=== PATIENT | male | born 1960 | race Caucasian/White ===

== ENCOUNTER → 2018-04-02 08:02 | Outpatient (CLI) | payer OTHER, SELFPAY ==
[2018-04-02 11:34] LABS: Anion Gap 10 (5-15); BUN 21 mg/dL (7-18); BUN/Creat Ratio 21.3 RATIO (10-20); Chloride 106 mmol/L (98-107); Cholesterol 224 mg/dL (200); Creatinine, Serum 0.99 mg/dL (0.70-1.30); EST Glomerular Filtration Rate 84 mL/min (>60); Est Glom Filt Rate - Afr Amer 101 mL/min (>60); Glucose 95 mg/dL (74-106); High Density Lipoprotein 58 mg/dL; PSA,Total - Annual Screen 0.55 ng/mL (0.00-4.00); Potassium 4.1 mmol/L (3.5-5.1); Sodium Level 141 mmol/L (136-145); Thyroid Stim Hormone (TSH) 2.53 uIU/mL (0.358-3.74); Triglycerides 66 mg/dL; Very Low Density Lipoprotein 13 mg/dL (5-40)
[2018-04-02 12:05] LABS: Vitamin D,25 Hydroxy 32.4 ng/mL (29.95-100.01)
== END ==
PROVIDERS: Family Provider Family Medicine; PCP Family Medicine; Visit Provider Family Medicine
DX: Z00.00 Encounter for general adult medical examination without abnormal findings (principal); Z12.5 Encounter for screening for malignant neoplasm of prostate
CPT/HCPCS: 36415; 80048; 80061; 82306; 84153; 84443; G0103

== ENCOUNTER → 2018-07-05 16:15 | Outpatient (CLI) | payer OTHER, SELFPAY ==
[2018-07-05 18:40] LABS: Cholesterol 161 mg/dL (200); High Density Lipoprotein 65 mg/dL; Triglycerides 64 mg/dL; Very Low Density Lipoprotein 13 mg/dL (5-40)
--- OUTSIDE RECORDS SUMMARY | 2018-08-22 01:13 | XMS RPT_ITS ---
:1960 Author Organization OHIP Care Team Providers Name Role Phone Bucky Castañeda Attending Unavailable Bucky Castañeda Referring Unavailable Bucky Castañeda Primary Care Unavailable Bucky Castañeda Attending Unavailable Bucky Castañeda Referring Unavailable Bucky Castañeda Primary Care Unavailable PROBLEMS PROBLEMS No Problem Records FoundPROCEDURES PROCEDURES No Procedure Records FoundRESULTS RESULTS LIPID PROFILE Collected: 07/05/2018 Status: F Source: KEIKO 4:20 PM [facility] REPOSITORY Order Comment: Order Date: 04/02/18 Order Info: 18169-7 - LIPID TYPE CODE TESTS RESULT OUT OF RANGE REFERENCE UNITS LAB L501.4900 200 mg/dL Normal CHOL 161 Result Comment: <200 mg/dL Desirable 200-240 mg/dL Borderline >240 mg/dL High Risk LAB L501.5000 mg/dL Normal TRIG 64 Result Comment: The drugs N-Acetylcysteine and Metamizole may falsely depress this assay. Serum Triglycerides Reference Interval Normal <150 mg/dL Borderline high 150 - 199 mg/dL High 200 - 499 mg/dL Very High > or = 500 mg/dL LAB L501.6400 mg/dL Normal HDL 65 Result Comment: The drugs N-Acetylcysteine and Metamizole may falsely depress this assay. Reference Range HDL <40 mg/dL Low HDL Cholesterol HDL >or= 60 mg/dL High HDL Cholesterol LAB L501.6500 0-130 mg/dL Normal LDL 83 LAB L501.6600 5-40 mg/dL Normal VLDL 13 Performed By: #### L500.4100 #### [facility] [address] [place], [place], [id number] BASIC METABOLIC Collected: 04/02/2018 Status: F Source: KEIKO PROFILE (BMP) 8:08 AM [facility] REPOSITORY TYPE CODE TESTS RESULT OUT OF RANGE REFERENCE UNITS LAB L501.0100 74-106 mg/dL Normal GLU 95 Result Comment: Please note revised GLUCOSE reference range effective 2017. LAB L501.1000 7-18 mg/dL High BUN 21 LAB L501.1100 0.70-1.30 mg/dL Normal CREAT,SERUM 0.99 Result Comment: The validity of the calculated GFR AND GFRAA in patients over 70 years has not been determined. Clinical correlation is essential. LAB L501.1110 >60 mL/min Normal EST GFR 84 Result Comment: Non- GFR Calc LAB L501.1115 >60 mL/min Normal EST GFR - AA 101 Result Comment: GFR Calc LAB L501.1300 10-20 RATIO High BUN/CRE 21.3 LAB L501.2200 8.5-10.1 mg/dL CA Normal 9.0 LAB L501.5300 136-145 mmol/L NA Normal 141 LAB L501.5600 3.5-5.1 mmol/L K Normal 4.1 LAB L501.5900 98-107 mmol/L CL Normal 106 LAB L501.6100 21.0-32.0 mmol/L Normal CO2 25.0 LAB L501.6200 5-15 Normal GAP 10 Performed By: #### L500.2500, L500.4100, L501.9520, L501.9910 #### [facility] [address] [place], [address] LIPID PROFILE Collected: 04/02/2018 Status: F Source: KEIKO 8:08 AM [facility] REPOSITORY TYPE CODE TESTS RESULT OUT OF RANGE REFERENCE UNITS LAB L501.4900 200 mg/dL High CHOL 224 Result Comment: <200 mg/dL Desirable 200-240 mg/dL Borderline >240 mg/dL High Risk LAB L501.5000 mg/dL Normal TRIG 66 Result Comment: The drugs N-Acetylcysteine and Metamizole may falsely depress this assay. Serum Triglycerides Reference Interval Normal <150 mg/dL Borderline high 150 - 199 mg/dL High 200 - 499 mg/dL Very High > or = 500 mg/dL LAB L501.6400 mg/dL Normal HDL 58 Result Comment: The drugs N-Acetylcysteine and Metamizole may falsely depress this assay. Reference Range HDL <40 mg/dL Low HDL Cholesterol HDL >or= 60 mg/dL High HDL Cholesterol LAB L501.6500 0-130 mg/dL High LDL 153 LAB L501.6600 5-40 mg/dL Normal VLDL 13 Performed By: #### L500.2500, L500.4100, L501.9520, L501.9910 #### [facility] [address] [place], [address] THYROID STIM HORMONE Collected: 04/02/2018 Status: F Source: KEIKO (TSH) 8:08 AM [facility] REPOSITORY TYPE CODE TESTS RESULT OUT OF RANGE REFERENCE UNITS LAB L501.9520 0.358-3.74 uIU/mL Normal TSH 2.53 Performed By: #### L500.2500, L500.4100, L501.9520, L501.9910 #### [facility] [address] [place], [address] PSA,TOTAL - ANNUAL Collected: 04/02/2018 Status: F Source: KEIKO SCREEN 8:08 AM [facility] REPOSITORY TYPE CODE TESTS RESULT OUT OF RANGE REFERENCE UNITS LAB L501.9910 0.00-4.00 ng/mL Normal PSA,TOT 0.55 SCREEN Result Comment: This test was performed using the TPSA assay method for the [employer] chemistry system. Values obtained with different assay methods cannot be used interchangably. When changing PSA assays in the course of monitoring a patient, additional sequential testing should be carried out to confirm baseline values. Performed By: #### L500.2500, L500.4100, L501.9520, L501.9910 #### [facility] [address] [place], [address] VITAMIN D,25 HYDROXY Collected: 04/02/2018 Status: F Source: KEIKO 8:08 AM [facility] REPOSITORY TYPE CODE TESTS RESULT OUT OF RANGE REFERENCE UNITS LAB L506.1000 29.95-100.01 ng/mL Normal Vitamin D 32.4 25-OH Result Comment: Vitamin D 25(OH) Status Range Deficiency <20 ng/mL (50nmol/L) Insuffciency 20 - 30 ng/mL (50 - 75 nmol/L) Sufficiency 30 - 100 ng/mL (75 - 250 nmol/L) Toxicity >100 ng/mL (>250 nmol/L) Performed By: #### L506.1000 #### [facility] [place], [address] ALLERGIES ALLERGIES No Allergies Records FoundENCOUNTERS ENCOUNTERS ADMIT/DISCHARGE ACCOUNT ADMITTING ENCOUNTER LOCATION SOURCE NUMBER CLASS 07/05/2018 [id number] Ambulatory [facility] 8 [facility] ing:MTLAB Repository 04/02/2018 [id number] [facility] ing:MTLAB Repository PAYERS PAYERS ENCOUNTER GUARANTOR PAYER SUBSCRIBER SOURCE 07/05/2018 MAXIMINO Connolly Primary Insurance:MED [facility]IMINO [facility] [facility]: [facility] Number: [id number] [id number] Repository [address]Nfb: [phone]) Date:6784-07-85[phone] () [address], [place] [address]DE: CHECK WEBSITE 07/05/2018 Secondary NOT GIVENUNK [place] Insurance:SELF PAY [facility] Number: Effective Repository Date:2018-07-05 04/02/2018 MAXIMINO Cathleen Primary Insurance:MED MAXIMINO Connolly Ke[place] [id number] [facility]: [facility] Number: [id number], [place] [id number] Repository [address]Auy: [phone]) Date:6189-25-99[phone] () [id number], [place] [address]FR: CHECK WEBSITE 04/02/2018 Secondary NOT GIVENUNK [place] Insurance:SELF PAY [facility] Number: Effective Repository Date:2018-04-02
== END ==
PROVIDERS: Family Provider Family Medicine; PCP Family Medicine; Referring Provider Family Medicine; Visit Provider Family Medicine
DX: E78.5 Hyperlipidemia, unspecified (principal)
CPT/HCPCS: 36415; 80061

== ENCOUNTER → 2020-04-04 14:48 | Outpatient (CLI) | payer OTHER, SELFPAY ==
[2020-04-04 19:11] LABS: Vitamin D,25 Hydroxy 42.5 ng/mL
[2020-04-04 19:40] LABS: Anion Gap 8 (5-15); BUN 19 mg/dL (7-18); BUN/Creat Ratio 19.2 RATIO (10-20); Calcium,Total 9.3 mg/dL (8.5-10.1); Chloride 105 mmol/L (98-107); Creatinine, Serum 0.99 mg/dL (0.70-1.30); EST Glomerular Filtration Rate 83 mL/min (>60); Est Glom Filt Rate - Afr Amer 100 mL/min (>60); Glucose 86 mg/dL (74-106); PSA,Total - Annual Screen 0.74 ng/mL (0.00-4.00); Potassium 3.9 mmol/L (3.5-5.1); Sodium Level 137 mmol/L (136-145)
== END ==
PROVIDERS: PCP Family Medicine; Referring Provider Family Medicine; Visit Provider Family Medicine
DX: Z00.00 Encounter for general adult medical examination without abnormal findings (principal)
CPT/HCPCS: 36415; 80048; 82306; 84153; G0103

== ENCOUNTER → 2021-04-05 14:27 | Outpatient (CLI) | payer OTHER, SELFPAY ==
[2021-04-05 17:58] LABS: Anion Gap 8 (5-15); BUN 20 mg/dL (7-18); BUN/Creat Ratio 21.6 RATIO (10-20); Calcium,Total 9.2 mg/dL (8.5-10.1); Chloride 104 mmol/L (98-107); Cholesterol 174 mg/dL (200); Creatinine, Serum 0.92 mg/dL (0.70-1.30); EST Glomerular Filtration Rate 89 mL/min (>60); Est Glom Filt Rate - Afr Amer 108 mL/min (>60); Glucose 86 mg/dL (74-106); High Density Lipoprotein 65 mg/dL; Potassium 4.1 mmol/L (3.5-5.1); Sodium Level 138 mmol/L (136-145); Triglycerides 76 mg/dL; Very Low Density Lipoprotein 15 mg/dL (5-40)
== END ==
PROVIDERS: PCP Family Medicine; Referring Provider Family Medicine; Visit Provider Family Medicine
DX: Z00.00 Encounter for general adult medical examination without abnormal findings (principal); E78.5 Hyperlipidemia, unspecified
CPT/HCPCS: 36415; 80048; 80061

== ENCOUNTER 2022-04-02 16:00 | Outpatient (RCR) | payer OTHER, SELFPAY ==
--- NOTE | 2022-03-19 16:49 | HP.PTEVAL_ITS ---
Patient's Visit Information MAXIMINO RAMIREZ is a 61 year old M referred to Physical Therapy by Dr. Willie Goss DPM with a diagnosis of Achilles tendonitis R. Date of Evaluation: 03/19/22 Physical Therapist: Sekou Chen DPT, OCS, CSCS - Visit Plan Plan: Pt doing really well with current interventions and wishes to do HEP vs in clinic therapy as iontophoresis is not covered by insurance and he has a large deductible. I have given him gastroc and soleus stretching and timing to do daily. Also eccentric heel lowering 2x10 daily, also education on options with PT and management of condition. he will call if improvement does not continue or if situation worsens. Otherwise he will f/u in two weeks to ensure progress and give chantel 4 ways if desired. If condition owrsens, then will bring him in for STM, US, stretching and option of ionto. - Subjective R achilles tendonitis. Noticed it on flight to [place] and was hiking out there. That was in November and no problem prior to that. Has h/o PFitis. Has improved since buying hokas and got inserts and antiinflammatories and night splint and is wearing it. Doing wall stretch. pain is much better and 2/10 and does not hurt once he is streetched out. Standing or sitting too lkong will make it worse. Overall almost all better. Still gets it int he am. Drive to work used to really hurt but not anymore. Employed at [employer] and not worse after work. Hobbies: into cars and he can do those things. No regular exercises but walks alot at work. - Pain R achilles Pain Intensity (Out of 10): 0 Pain Intensity Range: 0, 2 - Objective Walks into PT painfree adn no antalgia. Trasnfers easily without problems I. Heel raise and toe raise without pain today. Tender only slightly medial achilles insertion R. Slight palpable bump on posterior achilles insertion on calcaneus. Tightness obvious in foot achilles and gastroc B, 0 AROM DF R knee straight and only slightly better with knee bent, hypertonic. PF, in, eversion WNL B. knee AROM and hip AROM WFL B. reflexes 2/3 patella and achilles. sensation WNL to gross light touch. Strength ankles and knees 5/5 without pain. - Balance/Special Test Scores Lower Extremity Functional Score: 67 - Goals Goal 1:: Patient 95% better in overall pain level and I management of condition. Goal Time Frame: 2-4 Weeks - Rehabilitation Potential Physical Therapy Diagnosis: Achilles tendonitis R and pain Rehabilitation Potential: Fair - Anticipated Interventions Patient/Client Instruction: Educate patient on: Condition, Plan of Care For the Purpose of:: To decrease pain, To increase ROM, To improve muscle performance and motor function Therapeutic Exercise to Include: Strength training, Flexibilty training, Passive ROM, Active ROM For the Purpose of:: To decrease pain, To increase ROM, To improve muscle performance and motor function, To increase tolerance to activity /condition/position Manual Therapy Techniques to Include: Mobilization, Soft tissue mobilization For the Purpose of:: To decrease pain, To increase ROM Ultrasound (thermal/non thermal): Yes For the Purpose of:: To decrease pain, To decrease swelling/inflammation Thank you for the opportunity to evaluate your patient. For Medicare and Medicare HMO plans, please review the plan of care and approve it. It will need to be FAXED BACK to us at [phone] for Medicare purposes. For Medicare only, by signing this I certify the plan of care. Please let me know if there are questions or concerns regarding this plan of care. Physician Signature: Date:
--- NOTE | 2022-04-02 16:36 | HP.PTREVAL ---
Dr. Willie Goss, DPM, It has been my pleasure to treat MAXIMINO RAMIREZ over the last 2 visits for Achilles tendonitis R. Please see the progress note below for an update on the physical therapy plan of care! Subjective: No real pain. Ran out of meds 4 days ago. Mornings are slightly worse now that meds are off. Does have refills but hesitates to fill them. Pain in morning is 3/10 for stretching hurts worse. Feels better after a little bit but then again after drive into work. Once on feet, he is fine. Objective/Function: Good ROM, still tight to stretch soleus. 5/[address] Walking normal today without pain at time of appointment. Overall doing well but slightly worse since being off meds, funcitonal. Plan Plan: Patient is doing all the stretch and strengthening he would be in therapy at home. he is not getting STM, US, ionto and in clinic stretching due to not covered by insurance and high deductible. When we combine this with his very functional pain level, he wishes to f/u with doctor next week before pursuing more expensive PT treatments. he will continue his HEP and see doctor next week adn f/.u in two weeks with PT if desiring more treatment int he forms mentioned above. Balance/Gait/Functional tests - Balance/Special Test Scores Lower Extremity Functional Score: 67 Goals Goal 1:: Patient 95% better in overall pain level and I management of condition. Goal Time Frame: 2-4 Weeks Goal Progress: stagnant Anticipated Interventions Patient/Client Instruction: Educate patient on: Condition, Plan of Care For the Purpose of:: To decrease pain, To increase ROM, To improve muscle performance and motor function Therapeutic Exercise to Include: Strength training, Flexibilty training, Passive ROM, Active ROM For the Purpose of:: To decrease pain, To increase ROM, To improve muscle performance and motor function, To increase tolerance to activity/condition/position Manual Therapy Techniques to Include: Mobilization, Soft tissue mobilization For the Purpose of:: To decrease pain, To increase ROM Ultrasound (thermal/non thermal): Yes For the Purpose of:: To decrease pain, To decrease swelling/inflammation Please do not hesitate to contact me at [phone] by phone or if you have questions or concerns regarding this new plan of care! Sincerely, Sekou Chen, DPT, OCS, CSCS
--- NOTE | 2022-04-14 08:39 | HP.PT.NRP ---
MAXIMINO RAMIREZ was seen in my office for initial evaluation on 03/19/22. The following Plan of Care was established for this patient: Patient/Client Instruction: Educate patient on: Condition, Plan of Care For the Purpose of:: To decrease pain, To increase ROM, To improve muscle performance and motor function Therapeutic Exercise to Include: Strength training, Flexibilty training, Passive ROM, Active ROM For the Purpose of:: To decrease pain, To increase ROM, To improve muscle performance and motor function, To increase tolerance to activity/condition/position Manual Therapy Techniques to Include: Mobilization, Soft tissue mobilization For the Purpose of:: To decrease pain, To increase ROM Ultrasound (thermal/non thermal): Yes For the Purpose of:: To decrease pain, To decrease swelling/inflammation This patient was last seen in our office 04/02/22. Pertinent comments regarding their Physical therapy will appear below: Pt seen two visits for HEp instruct and was doing very well. He called to cancel the remainder of his POC as he has been released by doctor and does not wish to continue. i will discontinue him at this time. At this point I will be discontinuing this patient from physical therapy. I would be happy to see this patient again in the future if found appropriate by the physician. Thank you! Sekou Chen, DPT, OCS, CSCS Balance/Gait/Functional tests - Balance/Special Test Scores Lower Extremity Functional Score: 67
== END 2022-04-02 19:00 | disposition home or self-care (01) ==
LOC: PT 16:00
PROVIDERS: PCP Family Medicine; Referring Provider Student in an Organized Health Care Education/Training Program; Visit Provider Student in an Organized Health Care Education/Training Program
DX: M76.61 Achilles tendinitis, right leg (principal)
CPT/HCPCS: 97110; 97161

== ENCOUNTER → 2022-04-07 | Outpatient (CLI) | payer OTHER, SELFPAY ==
[2022-04-07 18:12] LABS: Anion Gap 9 (5-15); BUN 19 mg/dL (7-18); BUN/Creat Ratio 19.4 RATIO (10-20); Calcium,Total 9.2 mg/dL (8.5-10.1); Chloride 104 mmol/L (98-107); Cholesterol 239 mg/dL (200); Creatinine, Serum 0.98 mg/dL (0.70-1.30); EST Glomerular Filtration Rate 83 mL/min (>60); Est Glom Filt Rate - Afr Amer 100 mL/min (>60); Glucose 89 mg/dL (74-106); High Density Lipoprotein 60 mg/dL; PSA,Total - Annual Screen 0.58 ng/mL (0.00-4.00); Potassium 3.8 mmol/L (3.5-5.1); Sodium Level 138 mmol/L (136-145); Triglycerides 104 mg/dL; Very Low Density Lipoprotein 21 mg/dL (5-40)
[2022-04-07 18:18] LABS: Vitamin D,25 Hydroxy 28.7 ng/mL
== END | disposition home or self-care (01) ==
LOC: MFPLAB 14:42
PROVIDERS: PCP Family Medicine; Visit Provider Family Medicine
DX: Z00.00 Encounter for general adult medical examination without abnormal findings (principal)
CPT/HCPCS: 36415; 80048; 80061; 82306; 84153; G0103

== ENCOUNTER 2023-01-12 09:55 | Emergency (ER) | payer OTHER, SELFPAY ==
[2023-01-12 09:56] VITALS: BP 137/84; PULSE 64; RESP 14; TEMP 35.6; O2SAT 97; BMI 28.8
--- NOTE | 2023-01-12 10:10 | EDS_ITS ---
HPI HPI - GI History of Present Illness Chief Complaint: Abd Pain Informant: patient and spouse/S.O. Narrative Narrative: This is the fourth day patient has had symptoms of watery nonbloody diarrhea, nausea, and intermittent lower abdominal mild achy/cramping that basically precedes his diarrhea and is gone afterwards. No recent travel out of the area. No known sick contacts. No suspicion for food poisoning, he basically has eaten the same foods that his significant other has eaten and she is not ill and has no symptoms. Has a history of diverticulosis but admits that abdominal pain is usually the most prominent symptom when he has had diverticulitis in the past, that has not been the case with this it is mostly malaise and diarrhea. No urinary symptoms. He states he had 1 stool that was dark but not bloody and then the next 1 was light yellow watery and back to the way the other ones were. [facility] Medical History (Updated 01/12/23 @ 15:[address] Raudel Adrian MD) Diverticulosis Hyperlipidemia Allergy/AdvReac Type Severity Reaction Status Date / Time No Known Allergies Allergy Verified 01/12/23 09:57 Social History Smoking Status: Never smoker ROS ROS ED Constitutional Constitutional ED: Reports malaise and sweats; Denies chills or fever(s) Eyes Eyes: Denies change in vision or diplopia ENT ENT ED: Denies rhinorrhea or sore throat Cardiovascular Cardiovascular: Denies chest pain or palpitations Respiratory/Chest Respiratory/Chest: Denies cough or dyspnea Gastrointestinal Gastrointestinal: Reports abdominal pain, diarrhea, nausea and vomiting; Denies melena Genitourinary Genitourinary ED: Denies dysuria or hematuria Musculoskeletal Musculoskeletal: Reports back pain; Denies neck pain Integumentary Denies abscess or rash Neurologic Neurologic: Denies headache(s), paresthesias or weakness Psychiatric Psychiatric: Denies anxiety or suicidal thoughts EXAM Physical Exam Const Vital Signs: 01/12/23 09:56 01/12/23 13:55 Temperature 96.1 F L Temperature Source Temporal Pulse Rate 64 Respiratory Rate 14 Blood Pressure 137/84 H 134/65 H Blood Pressure Mean 101 88 Pulse Ox 97 Oxygen Delivery Method Room Air Positive well nourished and well developed General Appearance ED: well developed and NAD HEENT Reports moist mucous membranes normocephalic and atraumatic Eyes PERRL and EOMs intact bilaterally Neck full ROM and supple Resp normal respiratory effort and clear to auscultation bilaterally Cardio regular rate, regular rhythm and no murmurs GI non-distended GI Narrative: Mild tenderness both lower quadrants, less in the left upper quadrant, no guarding or rebound, no palpable mass, otherwise benign abdomen. There is faint blanching erythema surrounding the umbilicus, about 12 cm in diameter total without well-circumscribed edges. Nontender. Does not appear to be ecchymotic or purpuric, no petechiae. Auscultation: normoactive bowel sounds Palpation: soft Back/Spine no CVA tenderness General Back: other FROM Extremity normal to inspection General Extremety ED: Negative for edema, pulses abnormal or tenderness General Extremity: Negative for edema or pulses abnormal Neuro oriented x3, CN's II-XII intact bilaterally and no sensory deficits noted Sensorium / Orientation: awake and alert Motor Exam: strength 5/5 throughout Psych mental status grossly normal and thought process normal Skin no wounds Skin Narrative: See above, faint erythematous rash surrounding the umbilicus, does not appear ecchymotic like a [place] sign. No [place] sign. No other rashes or lesions. MDM MDM MDM Narrative Medical decision making narrative: Basic labs were obtained in addition to urinalysis all of which were unremarkable, although the patient still really felt better with IV fluids and Zofran. We did a CT scan given the tenderness in his lower abdomen, other than some signs of distal colitis that did not show anything else acute. I reviewed the images and report and I agree with it. The patient was able to provide diarrhea here, so I sent her for a fecal white blood cell smear which was positive, as well as Hemoccult blood which was positive. Therefore I sent it for an enteric bacterial panel, by the time the patient CT returned, it was only another hour or 2 before we were going to get the results of the enteric bacterial panel so they were amenable to waiting for that. It resulted positive for Salmonella. Although this patient is 62 he is doing very well with this and does not have severe disease at this time. He is staying well-hydrated, although he did feel better with the fluids, he does not meet CDC criteria at this time for need/recommendation for antibiotics. Supportive care advised, we discussed reasons to return if he does not have significant improvement or resolution within 7 days of the onset. History & Record Review Additional record(s) reviewed:: Prior labs Lab Data Attestation: I reviewed the patient's lab results. Labs: Laboratory Results - last 24 hr 01/12/23 01/12/23 01/12/23 10:20 10:20 10:20 WBC 6.2 RBC 5.58 Hgb 16.6 H Hct 50.9 MCV 91.2 MCH 29.7 MCHC 32.6 RDW Std Deviation 47.5 H RDW Coeff of Jose 14.1 Plt Count 152 MPV 10.8 Immature Gran % (Auto) 0.300 Neut % (Auto) 69.8 Lymph % (Auto) 14.0 L [place] % (Auto) 14.9 H Eos % (Auto) 0.2 Baso % (Auto) 0.8 Absolute Neuts (auto) 4.3 Absolute Lymphs (auto) 0.86 Nucleated RBC % 0 Sodium 137 Potassium 3.9 Chloride 104 Carbon Dioxide 26.0 Anion Gap 7 BUN 11 Creatinine 1.10 Estim Creat Clear Calc 85.35 Est GFR (MDRD) Af Amer 88 Est GFR (MDRD) Non-Af 72 BUN/Creatinine Ratio 10.0 Glucose 129 H Calcium 9.4 Urine Color Yellow Urine Clarity Clear Urine pH 6.0 Ur Specific [place] 1.020 Urine Protein 30 H Urine Glucose (UA) Normal Urine Ketones Negative Urine Occult Blood 25 H Urine Nitrite Negative Urine Bilirubin Negative Urine Urobilinogen Normal Ur Leukocyte Esterase Negative Urine RBC 0 SEEN Urine WBC 0-5 SEEN Ur Squamous Epith Cells 0-5 SEEN Urine Bacteria RARE Urine Mucus 0 SEEN Radiography Diagnostic Testing: Clinical Impression(s) from Imaging Studies Abdomen/Pelvis CT 01/12/23 11:10 IMPRESSION: Long segment of descending to rectosigmoid colonic wall thickening with pericolonic inflammation, favoring acute colitis over acute diverticulitis. Electronically Signed: Halie Rodriguez MD at 11:36 EDT , Management Discussion w/another healthcare provider: PCP Discharge Plan Triage Chief Complaint: Abd Pain Other Complaint: Diarrhea ED Provider: Raudel Adrian Dx/Rx/DC Orders Clinical Impression: Salmonella dysentery Instructions: Salmonella Dx Sx Tx, Ed Gastroenteritis Salmonella Primary Care Provider: Bucky Castañeda Referrals: Bucky Castañeda MD [Primary Care Provider] - (If you are not getting better by call your doctor for further instructions/prescriptions) Disposition Disposition: Home, Self Care
[2023-01-12] MEDS: 0.9% Normal Saline 1,000 ML 1000 ML IV (10:19)
[2023-01-12] MEDS: Dicyclomine 10 MG Capsule 20 MG PO (10:19)
[2023-01-12] MEDS: Ondansetron 4 MG/2 ML Vial IV (10:19)
[2023-01-12 10:28] LABS: Mucous, Urine 0 SEEN /hpf (<or=2+); Red Blood Cells-Urine 0 SEEN /hpf (0-5)
[2023-01-12 10:39] LABS: Color, Urine Yellow (Yellow); Glucose, Dipstick Normal (Normal); Ketone-Dipstick Negative (Negative); Leukocyte Esterase-Dipstick Negative /ul (Negative); Nitrite-Dipstick Negative (Negative); Occult Blood-Urine 25 /ul (Negative); Protein-Dipstick 30 mg/dl (Negative); Urine Bilirubin Dipstick Negative (Negative); Urine Clarity Clear (Clear); Urine Urobilinogen Normal (Normal)
[2023-01-12 10:40] LABS: Absolute Lymphocyte Count 0.86 X10^3/uL (0.83-4.51); Absolute Neutrophil Count 4.3 X10^3/uL (2.0-7.7); Basophil# 0.05 X10^3/uL; Basophil% 0.8 % (0-1); Eosinophil# 0.01 X10^3/uL; Eosinophils% 0.2 % (0-5); Hematocrit 50.9 % (40-54); Hemoglobin 16.6 g/dL (13.0-16.5); Lymphocyte # 0.86 X10^3/ul (0.83-4.51); Mean Corp Hgb Conc 32.6 g/dL (32-36); Mean Corpuscular Hgb 29.7 pg (27.0-32.0); Mean Corpuscular Volume 91.2 fL (80-94); Mean Platelet Vol. 10.8 fl (6.2-12.0); Monocyte# 0.92 X10^3/uL; Monocyte% 14.9 % (0-10); NRBC Flagged by Analyzer 0 % (0-5); Neutrophil % 69.8 % (47-70); POSITIVE MORPHOLOGY YES; Platelet Count 152 K/mm3 (150-450); RBC Distribution Width CV 14.1 % (11.6-14.6); RBC Distribution Width SD 47.5 fl (35.1-43.9); Red Blood Count 5.58 M/mm3 (4.6-6.2); White Blood Count 6.2 K/mm3 (4.4-11.0)
[2023-01-12 10:42] LABS: Differential Indicated SCAN CRITERIA MET
[2023-01-12 10:51] LABS: Bacteria RARE /hpf (None Seen); Squamous Epithelial Cells - UA 0-5 SEEN /hpf (0-5); White Blood Cells 0-5 SEEN /hpf (0-5)
[2023-01-12 10:58] LABS: Anion Gap 7 (5-15); BUN 11 mg/dL (7-18); Calcium,Total 9.4 mg/dL (8.5-10.1); Chloride 104 mmol/L (98-107); EST Glomerular Filtration Rate 72 mL/min (>60); Est Glom Filt Rate - Afr Amer 88 mL/min (>60); Estimated Creatinine Clearance 85.35 ml/min; Glucose 129 mg/dL (74-106); Potassium 3.9 mmol/L (3.5-5.1); Sodium Level 137 mmol/L (136-145)
--- NOTE | 2023-01-12 11:10 | CT_ITS ---
HISTORY: lower abdominal pain and diarrhea, hx diverticulosis. TECHNIQUE: Helically acquired images were obtained of the abdomen and pelvis after the intravenous administration of 100mL Isovue-300. A radiation dose optimization technique was used for this scan. 443 images. COMPARISON: 07/25/2013. FINDINGS: LOWER CHEST: Lung bases clear. BOWEL: Bowel including appendix nondilated. Colonic diverticulosis with long segment of mild colonic wall thickening, mild pericolonic stranding, and prominence of the vasa recta extending from the descending to rectosigmoid colon. PERITONEUM: Trace free fluid in the right and left lower quadrants. No free air. Small right quadrant mesenteric lymph nodes. LIVER: No enhancing mass. GALLBLADDER/BILIARY TREE: Gallbladder present. SPLEEN/PANCREAS: Homogeneous and nonenlarged. KIDNEYS: No hydronephrosis. Subcentimeter right lower pole cystic lesion again seen. ADRENAL GLANDS: No nodules. VESSELS: No abdominal aortic aneurysm. Mild atherosclerosis. PELVIC ORGANS: Unremarkable. ABDOMINAL WALL: Fat-containing left inguinal hernia. BONES: Degenerative change. CT/Abdomen/Pelvis W IV Cont ONLY IMPRESSION: Long segment of descending to rectosigmoid colonic wall thickening with pericolonic inflammation, favoring acute colitis over acute diverticulitis. Electronically Signed: Halie Rodriguez MD at 11:36 EDT ,
[2023-01-12 13:55] VITALS: BP 134/65
--- NOTE | 2023-01-12 15:03 | ED.RN ---
dr salazar notified of + salmonella
[2023-01-12 15:33] VITALS: BP 142/69; PULSE 73; RESP 16; O2SAT 97
== END 2023-01-12 15:34 | disposition home or self-care (01) ==
PROVIDERS: Emergency Provider Emergency Medicine; PCP Family Medicine; Visit Provider Emergency Medicine
DX: A02.0 Salmonella enteritis (principal)
CPT/HCPCS: 74177; 80048; 81001; 82274; 83630; 85025; 87506; 96361; 96374; 99284; J7030; Q9967; J2405

== ENCOUNTER → 2023-04-08 | Outpatient (CLI) | payer OTHER, SELFPAY ==
[2023-04-08 18:07] LABS: Anion Gap 5 (5-15); BUN 17 mg/dL (7-18); BUN/Creat Ratio 16.5 RATIO (10-20); Calcium,Total 9.4 mg/dL (8.5-10.1); Chloride 105 mmol/L (98-107); Cholesterol 160 mg/dL (200); Creatinine, Serum 1.03 mg/dL (0.70-1.30); EST Glomerular Filtration Rate 78 mL/min (>60); Est Glom Filt Rate - Afr Amer 94 mL/min (>60); Glucose 97 mg/dL (74-106); High Density Lipoprotein 73 mg/dL; PSA,Total - Annual Screen 0.54 ng/mL (0.00-4.00); Sodium Level 136 mmol/L (136-145); Triglycerides 67 mg/dL; Very Low Density Lipoprotein 13 mg/dL (5-40)
== END | disposition home or self-care (01) ==
LOC: MFPLAB 15:36
PROVIDERS: PCP Family Medicine; Visit Provider Family Medicine
DX: Z00.00 Encounter for general adult medical examination without abnormal findings (principal)
CPT/HCPCS: 36415; 80048; 80061; 84153; G0103

== ENCOUNTER → 2024-04-13 | Outpatient (CLI) | payer OTHER, SELFPAY ==
[2024-04-13 18:20] LABS: Anion Gap 8 (5-15); BUN 25 mg/dL (7-18); BUN/Creat Ratio 24.8 RATIO (10-20); Calcium,Total 9.6 mg/dL (8.5-10.1); Chloride 107 mmol/L (98-107); Cholesterol 175 mg/dL (200); Creatinine, Serum 1.01 mg/dL (0.70-1.30); EST Glomerular Filtration Rate 80 mL/min (>60); Est Glom Filt Rate - Afr Amer 96 mL/min (>60); Glucose 100 mg/dL (74-106); High Density Lipoprotein 64 mg/dL; PSA,Total - Annual Screen 0.56 ng/mL (0.00-4.00); Sodium Level 139 mmol/L (136-145); Triglycerides 75 mg/dL; Very Low Density Lipoprotein 15 mg/dL (5-40)
== END | disposition home or self-care (01) ==
LOC: MFPLAB 16:36
PROVIDERS: PCP Family Medicine; Visit Provider Family Medicine
DX: Z00.00 Encounter for general adult medical examination without abnormal findings (principal)
CPT/HCPCS: 36415; 80048; 80061; 84153; G0103

== ENCOUNTER → 2025-04-14 | Outpatient (CLI) | payer OTHER, SELFPAY ==
[2025-04-14 18:44] LABS: Anion Gap 13 (5-15); BUN 19 mg/dL (4-19); BUN/Creat Ratio 20.6 RATIO (10-20); Calcium,Total 9.5 mg/dL (7.6-11.0); Carbon Dioxide 22.3 mmol/L (21.0-32.0); Chloride 104 mmol/L (98-108); Cholesterol 161 mg/dL (<=200); Glucose 84 mg/dL (70-99); Low Density Lipoprotein Calc. 89 mg/dL; PSA,Total - Annual Screen 0.54 ng/mL (0.02-4.00); Potassium 4.1 mmol/L (3.3-5.1); Triglycerides 81 mg/dL; Very Low Density Lipoprotein 16 mg/dL (5-40); cholesterol:hdl ratio screen 2.91
== END | disposition home or self-care (01) ==
LOC: MFPLAB 15:02
PROVIDERS: PCP Family Medicine; Visit Provider Family Medicine
DX: Z00.00 Encounter for general adult medical examination without abnormal findings (principal); Z12.5 Encounter for screening for malignant neoplasm of prostate
CPT/HCPCS: 36415; 80048; 80061; 84153; G0103